=== PATIENT | female | born 1985 | race African-American/Black ===

== ENCOUNTER 2018-10-11 14:31 | Emergency (ER) | payer OTHER ==
--- NOTE | 2018-10-11 15:50 | RAD REPORT ---
EXAM DESCRIPTION: RAD - Hand Right 3 View - 10/11/2018 3:37 pm CLINICAL HISTORY: Right hand pain status post injury FINDINGS: No fracture or dislocation is seen.
--- NOTE | 2018-10-11 15:51 | RAD REPORT ---
EXAM DESCRIPTION: RAD - Wrist Right 3 View - 10/11/2018 3:37 pm CLINICAL HISTORY: Right wrist pain status post injury FINDINGS: No fracture or dislocation is seen. Bones are osteoporotic. If the patient continues to have symptoms to suggest an occult fracture then a followup plain film se [place] in 7 days would be recommended.
--- NOTE | 2018-10-11 16:03 | ER ---
Nurse's Notes [facility] Name: Sherri Patrick Age: 32 yrs Sex: Female : 1985 Arrival Date: 10/11/2018 Time: 14:39 Bed 30 Private MD: Diagnosis: Sprain of other part of right wrist and hand Presentation: 10/11 14:42 Presenting complaint: Patient states: "I was coming back from lunch and I got ready to [facility] open the door and the wind blew the door and my hand was on the door and it threw me, and my wrist started hurting, its tender to the touch, a dull achy pain. Earlier I had a little bruising." Reports pain and tingling to right wrist. Transition of care: patient was not received from another setting of care. Onset of symptoms was October 11, 2018. Risk Assessment: Do you want to hurt yourself or someone else? Patient reports no desire to harm self or others. Initial Sepsis Screen: Does the patient meet any 2 criteria? No. Patient's initial sepsis screen is negative. Does the patient have a suspected source of infection? No. Patient's initial sepsis screen is negative. Care prior to arrival: None. 14:42 Method Of Arrival: Ambulatory [facility] 14:42 Acuity: AAYN 4 aj1 Triage Assessment: 14:47 General: Appears in no apparent distress. uncomfortable, Behavior is calm, cooperative, aj1 appropriate for age. Pain: Complains of pain in right wrist Pain currently is 3 out of 10 on a pain scale. Neuro: Level of Consciousness is awake, alert, obeys commands. Cardiovascular: Patient's skin is warm and dry. Respiratory: Airway is patent Respiratory effort is even, unlabored, Respiratory pattern is regular. Musculoskeletal: Range of motion: limited in right wrist. MANAGER EQUIPMENT: 14:47 LMP N/A - control method aj1 Historical: - Allergies: 14:47 No Known Allergies; aj1 - Home Meds: 14:47 Xanax Oral [Active]; aj1 - PMHx: 14:47 Anxiety; IBS; aj1 - PSHx: 14:47 Knee surgery; aj1 - Immunization history:: Flu vaccine is up to date. - Social history:: Smoking status: Patient/guardian denies using tobacco. - Ebola Screening: : Patient denies travel to an Ebola-affected area in the 21 days before illness onset. Screenin:54 Abuse screen: Denies threats or abuse. Denies injuries from another. Nutritional rv screening: No deficits noted. Tuberculosis screening: No symptoms or risk factors identified. Fall Risk None identified. Assessment: 14:53 General: Appears in no apparent distress. comfortable, Behavior is calm, cooperative. rv Pain: Complains of pain in right hand Pain currently is 3 out of 10 on a pain scale. Neuro: Level of Consciousness is awake, alert, obeys commands, Oriented to person, place, time, situation. Cardiovascular: Capillary refill < 3 seconds. Respiratory: Airway is patent. GI: No signs and/or symptoms were reported involving the gastrointestinal system. : No signs and/or symptoms were reported regarding the genitourinary system. EENT: No signs and/or symptoms were reported regarding the EENT system. Derm: Skin is intact. Musculoskeletal: Reports pain in right hand Pain is 3 out of 10 on a pain scale. Vital Signs: 14:47 BP 116 / 85; Pulse 73; Resp 16; Temp 97.6; Pulse Ox 100% on R/A; Weight 86.18 kg (R); aj1 Height 5 ft. 9 in. (175.26 cm) (R); Pain 3/10; 14:47 Body Mass Index 28.06 (86.18 kg, 175.26 cm) aj1 ED Course: 14:39 Patient arrived in ED. sb2 14:46 Triage completed. aj1 14:47 Arm band placed on Patient placed in an exam room. [facility] 14:52 Sterling Guerrier PA is PHCP. [facility] 14:52 Onel Yeung MD is Attending Physician. [facility] 14:54 Patient has correct armband on for positive identification. Bed in low position. Call rv light in reach. Side rails up X 1. Pulse ox on. NIBP on. 15:37 Hand Right 3 View XRAY In Process Unspecified. EDMS 15:37 Wrist Right 3 View XRAY In Process Unspecified. EDMS 16:02 Florencio Caballero MD is Referral Physician. m 16:11 No provider procedures requiring assistance completed. Patient did not have IV access rv during this emergency room visit. Velcro wrist splint applied to right wrist. Administered Medications: No medications were administered Outcome: 16:03 Discharge ordered by . tye 16:11 Discharged to home ambulatory. rv 16:11 Condition: good 16:11 Discharge instructions given to patient, Instructed on discharge instructions, follow up and referral plans. medication usage, splint care Demonstrated understanding of instructions, follow-up care, medications, splint care, Prescriptions given X 1. 16:12 Patient left the ED. rv Signatures: Dispatcher [employer] EDUma Garrison, RN RN aj1 Sterling Guerrier PA PA jmm Billeau, Sheri sb2 Donell Ramirez RN RN rv
--- NOTE | 2018-10-11 16:03 | EDPHYS ---
Physician Documentation [facility] Name: Sherri Patrick Age: 32 yrs Sex: Female : 1985 Arrival Date: 10/11/2018 Time: 14:39 Bed 30 Private MD: ED Physician Onel Yeung HPI: 10/11 15:55 This 32 yrs old Black Female presents to ER via Ambulatory with complaints of Wrist jmm Injury. 15:55 The patient or guardian reports injury, pain. Onset: The symptoms/episode jmm began/occurred acutely, just prior to arrival. This is a 32 year old female with a history of anxiety, ibs that presents to the ED with right wrist pain. Patient states that a door swung open due to a marzena of winding pulling her wrist. Patient denies other injury. . MEDICATION ASSISTANT: 14:47 LMP N/A - control method aj1 Historical: - Allergies: 14:47 No Known Allergies; aj1 - Home Meds: 14:47 Xanax Oral [Active]; aj1 - PMHx: 14:47 Anxiety; IBS; aj1 - PSHx: 14:47 Knee surgery; aj1 - Immunization history:: Flu vaccine is up to date. - Social history:: Smoking status: Patient/guardian denies using tobacco. - Ebola Screening: : Patient denies travel to an Ebola-affected area in the 21 days before illness onset. ROS: 15:55 Constitutional: Negative for fever, chills, and weight loss, Eyes: Negative for injury, jmm pain, redness, and discharge, Cardiovascular: Negative for chest pain, palpitations, and edema, Respiratory: Negative for shortness of breath, cough, wheezing, and pleuritic chest pain. 15:55 MS/extremity: Positive for injury or acute deformity, pain. 15:55 All other systems are negative. Exam: 15:55 Constitutional: This is a well developed, well nourished patient who is awake, alert, jmm and in no acute distress. Head/Face: atraumatic. Eyes: EOMI, no conjunctival erythema appreciated ENT: Moist Mucus Membranes Neck: Trachea midline, Supple Chest/axilla: Normal chest wall appearance and motion. Cardiovascular: Regular rate and rhythm. No edema appreciated Respiratory: Normal respirations, no respiratory distress appreciated Skin: General appearance color normal Neuro: Awake and alert, normal gait Psych: Behavior is normal, Mood is normal, Patient is cooperative and pleasant 15:55 Musculoskeletal/extremity: right ulner side of the wrist is tender to palpation, no deformity is appreciated, full radial pulse, no snuff box tenderness is appreciated, < 2 sec dist cap refill, NVI. . Vital Signs: 14:47 BP 116 / 85; Pulse 73; Resp 16; Temp 97.6; Pulse Ox 100% on R/A; Weight 86.18 kg (R); aj1 Height 5 ft. 9 in. (175.26 cm) (R); Pain 3/10; 14:47 Body Mass Index 28.06 (86.18 kg, 175.26 cm) aj1 MDM: 15:03 Patient medically screened. [facility] 15:55 Data reviewed: vital signs, nurses notes. Counseling: I had a detailed discussion with [facility] the patient and/or guardian regarding: the historical points, exam findings, and any diagnostic results supporting the discharge/admit diagnosis. 16:02 Data reviewed: radiologic studies. Counseling: I had a detailed discussion with the [facility] patient and/or guardian regarding: radiology results, the need for outpatient follow up, to return to the emergency department if symptoms worsen or persist or if there are any questions or concerns that arise at home. 10/11 15:04 Order name: Hand Right 3 View XRAY; Complete Time: 15:52 [facility] 10/11 15:04 Order name: Wrist Right 3 View XRAY; Complete Time: 15:52 [facility] 10/11 15:53 Order name: Wrist Splint; Complete Time: 15:59 [facility] Administered Medications: No medications were administered Disposition: 10/11/18 16:03 Discharged to Home. Impression: Sprain of other part of right wrist and hand. - Condition is Stable. - Discharge Instructions: Wrist Sprain, Form - Return To Work. - Prescriptions for Ibuprofen 800 mg Oral Tablet - take 1 tablet by ORAL route every 12 hours As needed take with food; 20 tablet. - Medication Reconciliation Form, Thank You Letter, Antibiotic Education, Prescription Opioid Use, Work release form form. - Follow up: Florencio Caballero MD; When: 2 - 3 days; Reason: Recheck today's complaints, Continuance of care, Re-evaluation by your physician. Addendum: 10/22/2018 07:27 Co-signature as Attending Physician, Onel Yeung MD I agree with the assessment and k dr plan of care. Signatures: Dispatcher [employer] EDUma Garrison RN RN aj1 Onel Yeung MD MD [facility] Sterling Guerrier PA PA jmm Vicente, Ronaldo, RN RN rv Corrections: (The following items were deleted from the chart) 10/11 16:12 16:03 10/11/2018 16:03 Discharged to Home. Impression: Sprain of other part of right rv wrist and hand. Condition is Stable. Forms are Medication Reconciliation Form, Thank You Letter, Antibiotic Education, Prescription Opioid Use. Follow up: Florencio Caballero; When: 2 - 3 days; Reason: Recheck today's complaints, Continuance of care, Re-evaluation by your physician. tye
== END 2018-10-11 16:12 | disposition home or self-care (01) ==
LOC: ER 14:31
DX: S63.8X1A Sprain of other part of right wrist and hand, initial encounter (principal); W22.8XXA Striking against or struck by other objects, initial encounter; Y93.9 Activity, unspecified; Y92.9 Unspecified place or not applicable; F41.9 Anxiety disorder, unspecified
CPT/HCPCS: 99284